=== PATIENT | male | born 1995 | race Caucasian/White ===

== ENCOUNTER 2017-07-23 11:04 | Emergency (ER) | payer BC, OTHER ==
[~2017-07-23] VITALS: Ht 175.3 cm; Wt 74.8 kg
--- NOTE | 2017-07-23 12:13 | ED EENT ---
History of Present Illness General Chief Complaint: Oral/Throat Problems Stated Complaint: SORE THROAT,FEVER,CHILLS Nursing Triage Note: pt reports sore throat starting 2-3 days ago, fevers, chills, cough, drowsiness worsening yesterday. temp 101.2 at this time Source: patient Exam Limitations: no limitations History of Present Illness Date Seen by Provider: Jul 23, 2017 Time Seen by Provider: 12:11 Initial Comments To ER with a 2 to three-day history of sore throat, rhinorrhea, fever up to 101. Both brothers tested positive for influenza. Severity: moderate Associated Symptoms: fever Allergies and Home Medications Allergies Coded Allergies: No Known Drug Allergies (Unverified , 07/23/17) Review of Systems Constitutional: see HPI Eyes: No Symptoms Reported Ears: No Symptoms Reported Nose: no symptoms reported Mouth: no symptoms reported Throat: see HPI, pain Respiratory: no symptoms reported Cardiovascular: no symptoms reported Musculoskeletal: no symptoms reported Past Mpnygei-Syqhmv-Qrkqfd Hx Patient Social History Alcohol Use: Occasionally Uses Alcohol Beverage of Choice: Cheap Liquor Recreational Drug Use: Yes Drug of Choice: marijuana Smoking Status: Never a Smoker 2nd Hand Smoke Exposure: Yes Recent Foreign Travel: No Contact w/Someone Who Travel: No Recent Infectious Disease Expo: No Recent Hopitalizations: No Immunizations Up To Date Tetanus Booster (TDap): Less than 5yrs PED Vaccines UTD: Yes Seasonal Allergies Seasonal Allergies: No Surgeries History of Surgeries: No Respiratory History of Respiratory Disorde: No Cardiovascular History of Cardiac Disorders: No Neurological History of Neurological Disord: No Genitourinary History of Genitourinary Disor: No Gastrointestinal History of Gastrointestinal Di: No Musculoskeletal History of Musculoskeletal Dis: No Endocrine History of Endocrine Disorders: No HEENT History of HEENT Disorders: No Cancer History of Cancer: No Psychosocial History of Psychiatric Problem: No Integumentary History of Skin or Integumenta: No Blood Transfusions History of Blood Disorders: No Physical Exam Vital Signs Vital Sign - Last 12Hours 07/23/17 12:00 Temp 101.2 Pulse 109 Resp 18 B/P (MAP) 103/68 (80) Pulse Ox 95 O2 Delivery Room Air General Appearance: WD/WN, no apparent distress Eyes: bilateral eye normal inspection, bilateral eye PERRL, bilateral eye EOMI Ears: bilateral ear auricle normal, bilateral ear canal normal, bilateral ear TM normal Mouth/Throat: tonsillar swelling (and erythema without exudate or uvular deviation to suggest peritonsillar abscess) Neck: non-tender, full range of motion, lymphadenopathy (R), lymphadenopathy (L ) Cardiovascular: regular rate, rhythm, no murmur Respiratory: normal breath sounds, no respiratory distress, no accessory muscle use Gastrointestinal: normal bowel sounds, non tender Neurologic/Psychiatric: alert, normal mood/affect, oriented x 3 Skin: normal color, warm/dry Progress/Results/Core Measures Results/Orders Lab Results Laboratory Tests Test 07/23/17 12:10 Range/Units Group A Streptococcus Screen NEGATIVE NEGATIVE Micro Results Microbiology 07/23/17 Influenza Types A,B Antigen (JOSÉ) - Final, Complete My Orders Orders - RIC CLEARY APRN Rapid Strep A Screen (07/23/17 12:11) Influenza A And B Antigens (07/23/17 12:11) Ibuprofen Tablet (Motrin Tablet) (07/23/17 12:15) Medications Given in ED Current Medications Medications Dose Ordered Sig/Joann Route Start Time Stop Time Status Last Admin Dose Admin Ibuprofen 800 mg ONCE ONCE PO 07/23/17 12:15 07/23/17 12:16 DC 07/23/17 12:29 800 MG Vital Signs/I&O Vital Sign - Last 12Hours 07/23/17 12:00 Temp 101.2 Pulse 109 Resp 18 B/P (MAP) 103/68 (80) Pulse Ox 95 O2 Delivery Room Air Blood Pressure Mean: 80 Departure Impression Impression: Primary Impression: Influenza B Disposition: 01 HOME, SELF-CARE Condition: Stable Departure-Patient Inst. Decision time for Depature: 12:31 Referrals: NO,LOCAL PHYSICIAN (PCP/Family) Primary Care Physician Patient Instructions: Flu, Adult (DC) Add. Discharge Instructions: 1. Tylenol and Motrin for fever and chills 2. Drink plenty of fluids 3. Gpil-qkk-kotbaot Robitussin or DayQuil/NyQuil for cough and symptom relief. Scripts Oseltamivir Phosphate (Tamiflu) 75 Mg Cap 75 MG PO BID, #10 CAP Prov: RIC CLEARY APRN 07/23/17 Work/School Note: Work Release Form Date Seen in the Emergency Department: Jul 23, 2017 Return to Work: Jul 26, 2017 RIC CLEARY APRN Jul 23, 2017 12:13
[2017-07-23] MEDS ORDERED: IBUPROFEN 800 MG (MOTRIN) TAB PO ONE (12:15)
[2017-07-23] MEDS ORDERED: OSLT75C PO (12:36)
[2017-07-23 12:45] VITALS: BP 103/68
== END 2017-07-23 12:44 | disposition home or self-care (01) ==
LOC: ER 11:08
DX: J10.1 Influenza due to other identified influenza virus with other respiratory manifestations (principal); F12.10 Cannabis abuse, uncomplicated
CPT/HCPCS: 87430; 87804; 99283

== ENCOUNTER 2017-08-03 19:30 | Emergency (ER) | payer BC ==
[~2017-08-03] VITALS: Ht 175.3 cm; Wt 74.8 kg
[~2017-08-03 19:30] MED LIST: OSLT75C PO
[2017-08-03] MEDS ORDERED: LIDOCAINE 1% INJ 50 ML (XYLOCAINE) VIAL ONE (19:53)
[2017-08-03] MEDS ORDERED: LIDOCAINE 1% INJ 20 ML (XYLOCAINE) VIAL INJ ONE (20:00)
[2017-08-03] MEDS ORDERED: RX-TRIMETH/SULFA. 160-800 MG (BACTRIM DS) TAB PPK#2 PO STA (20:14)
[2017-08-03] MEDS ORDERED: SULF1TAB35 PO (20:17)
--- NOTE | 2017-08-03 20:17 | ED Upper Extremity ---
General Chief Complaint: Laceration Stated Complaint: R HAND THUMB LAC Nursing Triage Note: laceration to right thumb Nursing Sepsis Screen: No Definite Risk Source: patient History of Present Illness Date Seen by Provider: Aug 03, 2017 Time Seen by Provider: 19:45 Initial Comments PT STATES HE CUT HIS RIGHT THUMB ON METAL BED FRAME WAS TRYING TO GET DOG OUT FROM UNDER THE BED,AND DOG TRIED TO BITE HIM AND HE JERKED HIS HAND AWAY, AND CUT IT ON SHARP METAL EDGE OF BED FRAME. DID NOT GET BIT BY DOG NO OTHER INJURIES NO PARESTHESIAS OR MOTOR DEFICITS NO PRIOR INJURY TO THUMB PT IS RIGHT HANDED [employer] STUDENT Allergies and Home Medications Allergies Coded Allergies: No Known Drug Allergies (Unverified , 07/23/17) Home Medications Sulfamethoxazole/Trimethoprim 1 Each Tablet, 1 EACH PO BID, #20 Prescribed by: KIRSTIE ACOSTA on 08/03/172016 Constitutional: no symptoms reported Musculoskeletal: see HPI Skin: see HPI Psychiatric/Neurological: No Symptoms Reported Past Diqsjvu-Tqsadu-Yzuksf Hx Patient Social History Alcohol Use: Occasionally Uses Number of Drinks Today: CC Alcohol Beverage of Choice: Cheap Liquor Recreational Drug Use: Yes Drug of Choice: cannibus Smoking Status: Never a Smoker 2nd Hand Smoke Exposure: Yes Recent Foreign Travel: No Contact w/Someone Who Travel: No Recent Infectious Disease Expo: No Recent Hopitalizations: No Immunizations Up To Date Tetanus Booster (TDap): Less than 5yrs PED Vaccines UTD: Yes Seasonal Allergies Seasonal Allergies: No Surgeries History of Surgeries: Yes (dental) Respiratory History of Respiratory Disorde: No Cardiovascular History of Cardiac Disorders: No Neurological History of Neurological Disord: No Genitourinary History of Genitourinary Disor: No Gastrointestinal History of Gastrointestinal Di: No Musculoskeletal History of Musculoskeletal Dis: No Endocrine History of Endocrine Disorders: No HEENT History of HEENT Disorders: No Cancer History of Cancer: No Psychosocial History of Psychiatric Problem: No Integumentary History of Skin or Integumenta: No Blood Transfusions History of Blood Disorders: No Physical Exam Vital Signs Vital Signs - First Documented 08/03/17 19:41 Temp 97.8 Pulse 85 Resp 16 B/P (MAP) 138/95 (109) Pulse Ox 98 O2 Delivery Room Air Capillary Refill : Less Than 3 Seconds General Appearance: WD/WN, no apparent distress, other (SMILING, TALKATIVE) Hand: Right (DORSAL ASPECT OF RIGHT THUMB WITH 2 CM LACERATION OVER MCP JOINT. LACERATION EXTENDS TO TENDON SHEATH, BUT NO EVIDENCE OF ACTUAL INJURY TO TENDON ITSELF. FULL ROM, SENSORY/VASCULAR INTACT. NO ACTIVE BLEEDING. ) Neurologic/Tendon: normal sensation, normal motor functions, normal tendon functions Neurologic/Psychiatric: crater and packer II-XII nml as tested, no motor/sensory deficits, alert, normal mood/affect, oriented x 3 Skin: normal color, warm/dry, other (LACERATION NOTED ABOVE) Laceration Repair : Other Wound Location RIGHT THUMB Wound Length (cm): 2 Wound's Depth, Shape: linear, sub Q (INTO TENDON SHEATH, BUT NOT TENDON ITSELF) Wound Explored: clean Betadine Prep?: No (BETASEPT) Anesthesia: 1% Lidocaine Suture: Ethlion, Vicryl Suture Size: 3-0, 4-0 Number of Sutures: 6 (2 SUTURES OF 3-0 VICRYL TO CLOSE TENDON SHEATH AND 4 SUTURES OF 4-0 ETHILON TO CLOSE SKIN) Layer Closure?: 2 Number Deep Layer Sutures: 2 Sterile Dressing Applied?: Yes Splinting and Joint Reduction : Splints: Thumb/Wrist Spica Progress/Results/Core Measures Results/Orders My Orders Orders - KIRSTIE ACOSTA DO Lidocaine 1% Injection (Xylocaine 1% Inj (08/03/17 20:00) Lidocaine 1% (Xylocaine 1%) (08/03/17 19:53) Rx-Trimeth/Sulfameth Ds Tab (Rx-Bactrim/ (08/03/17 20:14) Wound Dressing-Ed (08/03/17 20:14) Thumb Spika (08/03/17 20:14) Medications Given in ED Current Medications Medications Dose Ordered Sig/Joann Route Start Time Stop Time Status Last Admin Dose Admin Lidocaine HCl 50 ml STK-MED ONCE .ROUTE 08/03/17 19:53 08/03/17 19:55 DC 08/03/17 20:13 50 ML Vital Signs/I&O Vital Sign - Last 12Hours 08/03/17 08/03/17 19:41 20:26 Temp 97.8 97.8 Pulse 85 85 Resp 16 16 B/P (MAP) 138/95 (109) Pulse Ox 98 98 O2 Delivery Room Air Blood Pressure Mean: 109 Departure Impression Impression: Primary Impression: Laceration of right thumb Disposition: 01 HOME, SELF-CARE Condition: Stable Departure-Patient Inst. Referrals: NO,LOCAL PHYSICIAN (PCP) Primary Care Physician KYLE HAMM MD Patient Instructions: SPLINT CARE, Laceration Repair With Stitches (DC) Add. Discharge Instructions: LEAVE DRESSING IN PLACE FOR 24 HOURS, THEN CLEAN TWICE A DAY WITH ANTIBACTERIAL SOAP AND WATER ON A Q-TIP. OTHERWISE KEEP CLEAN AND DRY APPLY FRESH DRESSING TWICE A DAY WEAR SPLINT AT ALL TIMES SUTURES OUT IN 10 DAYS--RETURN TO ER FOR REMOVAL TYLENOL AND MOTRIN NEEDED FOR PAIN All discharge instructions reviewed with patient and/or family. Voiced understanding. Scripts Sulfamethoxazole/Trimethoprim (Bactrim Ds Tablet) 1 Each Tablet 1 EACH PO BID, #20 TAB Prov: KIRSTIE ACOSTA DO 08/03/17 KIRSTIE ACOSTA DO Aug 03, 2017 20:17
[2017-08-03 20:26] VITALS: BP 138/95
== END 2017-08-03 20:27 | disposition home or self-care (01) ==
LOC: EDUNIT# 19:30 → ER 19:32
DX: S61.011A Laceration without foreign body of right thumb without damage to nail, initial encounter (principal); F12.90 Cannabis use, unspecified, uncomplicated; Z77.22 Contact with and (suspected) exposure to environmental tobacco smoke (acute) (chronic); Z98.818 Other dental procedure status; W26.8XXA Contact with other sharp object(s), not elsewhere classified, initial encounter

== ENCOUNTER 2017-08-14 18:01 | Emergency (ER) | payer BC ==
[~2017-08-14] VITALS: Ht 175.3 cm; Wt 74.8 kg
[~2017-08-14 18:01] MED LIST changes: +SULF1TAB35 PO
[2017-08-14 18:16] VITALS: BP 122/68
== END 2017-08-14 18:16 | disposition home or self-care (01) ==
LOC: ER 18:01
DX: S61.011D Laceration without foreign body of right thumb without damage to nail, subsequent encounter (principal); X58.XXXD Exposure to other specified factors, subsequent encounter